=== PATIENT | female | born 1985 | race Caucasian/White ===

== ENCOUNTER 2022-04-18 14:30 | Emergency (ER) | payer BC | END 2022-04-18 15:37 | disposition home or self-care (01) | LOC: CC.ED 14:30 | DX: O99.342 Other mental disorders complicating pregnancy, second trimester (principal); F41.9 Anxiety disorder, unspecified; Z20.822 Contact with and (suspected) exposure to COVID-19; Z3A.26 26 weeks gestation of pregnancy | CPT/HCPCS: 36415; 80053; 83735; 85025; 93005; 99284; 99285; U0002 ==